=== PATIENT | female | born 1965 | race Caucasian/White ===

== ENCOUNTER 2020-09-22 15:23 | Emergency (ER) | payer OTHER ==
[~2020-09-22] VITALS: Ht 170.2 cm; Wt 70.3 kg
[2020-09-22] MEDS ORDERED: ONDANSETRON ODT4 MG PO (17:39)
[2020-09-22] MEDS ORDERED: BACTRIM DS TAB1 EACH PO (17:39)
[2020-09-22] MEDS ORDERED: DIFLUCAN150 MG PO (17:40)
== END 2020-09-22 18:00 | disposition home or self-care (01) ==
LOC: ED 15:23
DX: K52.9 Noninfective gastroenteritis and colitis, unspecified (principal); N39.0 Urinary tract infection, site not specified
CPT/HCPCS: 80053; 81001; 83690; 83735; 85025; 96374; 96375; 99284-25; J1885; J2405; J7030